=== PATIENT | male | born 2000 | race Caucasian/White ===

== ENCOUNTER 2023-05-02 21:37 | Emergency (ER) | payer OTHER, BC, SELFPAY ==
--- NOTE | 2023-05-02 21:40 | USR_ITS ---
PROCEDURE INFORMATION: Exam: US Scrotum Exam date and time: 05/02/2023 10:43 PM Age: 23 years old Clinical indication: Scrotum pain; Additional info: Testicle pain TECHNIQUE: Imaging protocol: Real-time ultrasound of the scrotum and contents with color Doppler and image documentation. COMPARISON: No relevant prior studies available. FINDINGS: Right testicle: The right testicle measures 4.7 x 3.5 x 2.5 cm and is unremarkable. There is normal blood flow in the right testicle. Left testicle: The left testicle measures 5.2 x 3.1 x 2.3 cm and is unremarkable. There is normal blood flow in the left testicle. Epididymides: The right epididymis measures 1.6 x 0.4 x 3.4 cm and is unremarkable. The left epididymis measures 1.3 x 1.2 x 3.1 cm and is unremarkable. Scrotum/soft tissues: Normal. US/US scrotum [id number] IMPRESSION: No acute sonographic abnormalities and no testicular torsion.
[2023-05-02 21:52] VITALS: BP 146/83; PULSE 115; RESP 17; TEMP 37.1; O2SAT 97; BMI 29.0
--- NOTE | 2023-05-02 23:19 | W.ED.MALEGU ---
HPI - Male Genitourinary General: Chief complaint: Urogenital-Male Stated complaint: Testicles Pain\Been Shocked By Electricty Time Seen by Provider: 05/02/23 23:14 Source: patient Mode of arrival: ambulatory Limitations: no limitations History of Present Illness: 23-year-old male states that he had woke up this morning and has been having some right testicle pain throughout the day states some mild pulling like pain rates it a 3 out of 10 denies any dysuria denies any penile discharge she denies any abdominal pain, he states today at work he was working around a power line and art gave him a mild shock but he has no pain from that or complaints from that. Associated symptoms: Deny dysuria, nausea or vomiting Review of Systems Const: Denies: fever(s), chills, body aches or change in appetite ENMT: Denies: throat pain or dental pain Card: Denies: chest pain Resp: Denies: dyspnea GI: Denies: abdominal pain, nausea, vomiting or diarrhea : Reports: testicular pain; Denies: flank pain, dysuria or penile discharge Musc: Denies: neck pain or back pain Skin/Breast: Denies: rash Neuro: Denies: headache(s) Physical Exam Const: COMMON NORMALS: no acute distress and patient oriented x3 HENMT: COMMON NORMALS: normocephalic and atraumatic HEAD & SCALP: normocephalic and atraumatic Neck/C-Spine: COMMON NORMALS: supple Chest: COMMONS NORMALS: normal inspection of the chest Resp: COMMON NORMALS: normal respiratory effort GI: COMMON NORMALS: Normal to inspection, nondistended, normoactive bowel sounds present, Soft to palpation and non-tender PALPATION: Yes Soft to palpation : PENIS: normal penis SCROTUM: Yes testes descended bilaterally TESTES: Yes testicular lie normal, No testicular swelling and No testicular tenderness Extremity: COMMON NORMALS: normal to inspection Neuro: COMMON NORMALS: patient oriented x3 Psych: COMMON NORMALS: mental status grossly normal Skin: COMMON NORMALS: no rashes or lesions noted GENERAL SKIN EXAM: no rashes or lesions noted Course Vital Signs: Vital signs: Vital Signs Temperature 98.7 F 05/02/23 21:52 Pulse Rate 115 H 05/02/23 21:52 Respiratory Rate 17 05/02/23 21:52 Blood Pressure 146/83 05/02/23 21:52 Pulse Oximetry 97 05/02/23 21:52 Oxygen Delivery Me thod Room Air 05/02/23 21:52 MDM - Male Medical Decision Making Patient presents here with testicle pain his exam here is benign ultrasound showed no acute abnormalities. His abdominal exam is benign as well no signs of STD or torsion he is stable for discharge we will place him on Naprosyn he is to follow-up with PCP and return if worsening. Medical Records I reviewed the patient's medical records. Lab Data I reviewed the patient's lab results. Radiology Impressions Scrotum Ultrasound 05/02/23 21:40 IMPRESSION: No acute sonographic abnormalities and no testicular torsion. All radiology interpretation(s) finalized by discharge Discharge Plan Discharge Patient Disposition: Home Clinical Impression: Pain in right testicle Condition: Stable Prescriptions: New Naprosyn 500 mg tablet 500 mg PO BID PRN (Reason: pain) Qty: 20 0RF Discharge Orders: Discharge ED (Routine); Ordered 05/02/23 Ordered By: Massimo Germain Discharge Diet: Advance as tolerated Discharge Activity: Resume usual activity Patient Instructions: Testicle Pain (ED) Coding Level of Care Code ED [employer] for [facility]
[2023-05-02 23:24] VITALS: BP 146/83; PULSE 115; RESP 17; TEMP 37.1; O2SAT 97
== END 2023-05-02 23:25 | disposition home or self-care (01) ==
PROVIDERS: Emergency Provider Emergency Medicine
DX: N50.811 Right testicular pain (principal)
CPT/HCPCS: 76870; 99283